=== PATIENT | female | born 2000 | race Caucasian/White ===

== ENCOUNTER 2024-08-21 00:41 | Emergency (ER) | payer OTHER ==
[~2024-08-21] VITALS: Ht 177.8 cm; Wt 80.0 kg
[2024-08-21 00:50] VITALS: BP 168/98; PULSE 120; RESP 18; TEMP 36.7; O2SAT 98
[2024-08-21] MEDS ORDERED: LOSA50TA41 PO (06:04)
== END 2024-08-21 01:24 | disposition left against medical advice (07) ==
LOC: ER 00:41
DX: Z53.21 Procedure and treatment not carried out due to patient leaving prior to being seen by health care provider (principal)